=== PATIENT | female | born 1950 | race Caucasian/White ===

== ENCOUNTER 2016-10-12 22:11 | Observation (INO) | payer MEDICARE, OTHER ==
[~2016-10-12] VITALS: Ht 160 cm; Wt 68.6 kg
[2016-10-12] MEDS ORDERED: NORC1TAB4 PO (22:29)
[2016-10-13] MEDS ORDERED: ONDANSETRON 4MG/2ML VIAL (J2405) IV ONE (03:00)
[2016-10-13] MEDS ORDERED: MORPHINE 4 MG/ML 1ML SYRINGE IV PRN (03:00)
[2016-10-13 03:21] LABS: BASO % 0.9 % (0.0-1.0); EOS # 0.1 K/mm3 (0.0-0.50); LARGE UNSTAINED CELL # 0.1 K/mm3 (0.0-0.4); LARGE UNSTAINED CELL % 1.8 % (0.0-4.0); LYMPH # 1.7 K/mm3 (1.5-4.5); LYMPH % 35.9 % (24.0-44.0); MEAN CORPUSCULAR HEMOGLOBIN 33.4 pg (27.0-33.0); MEAN CORPUSCULAR HGB CONC 34.3 g/dl (32.0-36.5); MEAN CORPUSCULAR VOLUME 97.1 fl (80.0-96.0); MONO # 0.2 K/mm3 (0.0-0.8); MONO % 4.6 % (0.0-5.0); NEUTROPHILS # 2.6 K/mm3 (1.8-7.7); NEUTROPHILS % 54.8 % (36.0-66.0); PLATELET COUNT, AUTOMATED 227 k/mm3 (150-450); RED CELL DISTRIBUTION WIDTH 12.1 % (11.5-14.5); WHITE BLOOD COUNT 4.8 K/mm3 (4.0-10.0)
[2016-10-13 03:27] LABS: INR 0.95
[2016-10-13 03:44] LABS: ANION GAP 8 MEQ/L (8-16); BLOOD UREA NITROGEN 17 MG/DL (7-18); CALCIUM LEVEL 8.9 MG/DL (8.8-10.2); CARBON DIOXIDE LEVEL 28 MEQ/L (21-32); CHLORIDE LEVEL 103 MEQ/L (98-107); CREATININE FOR GFR 0.63 MG/DL (0.55-1.02); GLOMERULAR FILTRATION RATE > 60.0 (>45); GLUCOSE, FASTING 104 MG/DL (80-110); POTASSIUM SERUM 4.1 MEQ/L (3.5-5.1); SODIUM LEVEL 139 MEQ/L (136-145)
--- NOTE | 2016-10-13 03:50 | REPUSA ---
CLINICAL HISTORY: Edema. COMMENTS: Real time sonography with duplex doppler of the right lower extremity was performed with attention to the major deep venous structures. Evaluation reveals the right common femoral, superficial femoral and popliteal veins to be completely compressible without intraluminal thrombus. There is normal spontaneous phasic flow and augmentation . The greater saphenous/common femoral vein junction is patent. No reflux was noted. IMPRESSION: No evidence of DVT in right lower extremity. Thank you for your kind referral of this patient.
[2016-10-13] MEDS ORDERED: KETOROLAC 30 MG/ML VIAL (J1885) IV ONE (04:45)
[2016-10-13] MEDS ORDERED: ASPI81TAEC PO (05:28)
[2016-10-13] MEDS ORDERED: BISACODYL 10 MG SUPP PR PRN (06:15)
[2016-10-13] MEDS ORDERED: ONDANSETRON 4MG/2ML VIAL (J2405) IV PRN (06:15)
[2016-10-13] MEDS ORDERED: oxyCODONE 5MG TAB PO PRN (06:15)
--- NOTE | 2016-10-13 06:20 | REPUSA ---
CLINICAL HISTORY: Pain. TECHNIQUE: Multiple axial CT images were obtained without IV contrast material. MPR coronal and sagit braden sequences are obtained. COMMENTS: There is no evidence of fracture or dislocation. There are no lytic or blastic lesions. No soft tissu e masses or fluid collections are present. There is no evidence of arthritis. Joint spaces are preserved. IMPRESSION: Normal study. Thank you for your kind referral of this patient.
[2016-10-13 08:40] VITALS: BP 168/82
[2016-10-13] MEDS: LIDOCAINE 5% (LIDODERM) PATCH TD SCH (08:47)
[2016-10-13] MEDS: SENOKOT S TAB PO SCH ×2 (08:47→20:21)
[2016-10-13] MEDS: ACETAMINOPHEN 500 MG TAB PO PRN ×2 (08:47→17:29)
[2016-10-13] MEDS: ENOXAPARIN 40 MG/0.4 ML SYRINGE (J1650) SC SCH (08:48)
--- NOTE | 2016-10-13 10:12 | HPE ---
DATE OF ADMISSION: 10/13/2016 PRIMARY CARE PROVIDER: Dr. Moise Ballard at [place], [place]. CHIEF COMPLAINT: Severe right buttock pain with radiation down the right thigh and leg for two days. PAST MEDICAL HISTORY: None. HISTORY OF PRESENT ILLNESS: This is a 66-year-old healthy female who to be till last year. [place]. She felt some twinges of pain in the right buttock and right hip 2 days ago and did not pay attention. Two days ago, she woke up from sleep and started to stand up. She felt severe pain radiating from the right buttock down the legs, the back of the thigh and down the front of the legs. She also started feeling tingling and numbness sensation on the front of the legs below the knee. She went to [facility]. There she had an x-ray done which did not show any abnormality. She was given a [place] discharged home. She took two doses of Reading, however the pain did not michelle at all. In fact, it was getting worse so she came to our hospital for evaluation. In our hospital, she was in severe pain and was unable to bear weight and was unable to ambulate. She received valium, morphine and Cat[place]ac. In spite of that, she continued to complain of pain. Blood work was done which were all within normal limits. The patient also had a vascular ultrasound done, which was negative for deep venous thrombosis. Examination of right lower extremity showed loss of deep tendon reflexes on the right and there was slightly slow capillary refill in both extremities. The patient was diagnosed with possible lumbar radiculopathy and was scheduled for a CT scan of the lumbar spine and subsequently, the patient was admitted to the hospitalist service for lumbar radiculopathy. 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 Left wrist surgery. SOCIAL HISTORY: The patient does not smoke. Does not drink alcohol or use any recreational drugs. ALLERGIES: No known drug allergies. HOME MEDICATIONS: No regular home medications. REVIEW OF SYSTEMS: The patient denies any fever or chills. Denies any chest pain, shortness of breath, or cough. Denies any abdominal pain, nausea, vomiting, diarrhea. PHYSICAL EXAMINATION: VITAL SIGNS: Temperature 97.7, pulse 73, respiratory rate 18, blood pressure 137/81, pulse oximetry 98% in room air. GENERAL: The patient is alert, awake, oriented times three sitting up in bed in no acute distress. HEENT: Normocephalic, atraumatic. Moist mucous membranes. Anicteric eyes. CHEST: Clear to auscultation. CARDIOVASCULAR: S1, S2 regular. No rub, murmur, or gallop. ABDOMEN: Soft, nontender. Bowel sounds present. EXTREMITIES: No edema. NEURO: Absence of deep tendon reflexes at the knee and ankle on the right. Normal reflexes on the left. Power on both sides 5/5. LABORATORY DATA: WBC 4.8, hemoglobin 14.5, platelet 227. Sodium 139, potassium 4.1, chloride 103, bicarbonate 28, BUN 17, creatinine 0.6, glucose 104, calcium 8.9. Coagulation studies are normal. Ultrasound of the lower extremities are negative. CT scan has been ordered. ASSESSMENT: This is a 66-year-old female admitted for possible lumbar radiculopathy inability to ambulate and pain control. PLAN: Right lower extremity pain, difficulty in ambulation most probably related to lumbar radiculopathy and sciatica. Will continue with pain control with morphine, oxycodone as needed and will also use Lidoderm patch locally. If pain is not adequately controlled. We will call pain management after CT scan is done to see if the patient would benefit from any local injections. Will also schedule the patient to be seen by physical therapy. Deep venous thrombosis prophylaxis has been ordered.
[2016-10-13] MEDS: MORPHINE 4 MG/ML 1ML SYRINGE IV PRN ×2 (13:09→20:14)
[2016-10-13 14:00] VITALS: BP 133/76
--- NOTE | 2016-10-13 15:33 | REP ---
MRI lumbar spine without contrast: History: Neuropathy. Shooting pain in the right hip down the right leg to the foot. Technique: Sagittal and axial T1 and T2-weighted scans are acquired in the usual fashion with and without fat saturation. Sequences include spin echo, turbo spin-echo, and STIR imaging sequences. MRI findings: There is a hemangioma in the right side of the vertebral body at T11. Cortical and medullary bone signal intensity are otherwise normal. Lumbar vertebral body heights are preserved. Alignment is normal. Conus medullaris is normal in position and appearance at T12-L1. Normal caliber aorta is seen. There is incidental note of gallstones with two fairly sizable filling defects in the gallbladder lumen. There is a small cortical cyst in the periphery of the right kidney. There is a 2.5 cm cystic area in the left ovary. Axial and sagittal images at the T12-L1 disc level show no significant abnormality. At L1-L2, there is mild diffuse disc bulging. No central canal stenosis or neural foraminal narrowing is seen. At L2-L3, there is minimal diffuse disc bulging. No other abnormality. At L3-4, there is degenerative disc and osteoarthritic facet disease moderate in degree bilaterally. This is associated with a degenerative 3 mm grade 1 spondylolisthesis at L3-4. No spondylolysis is seen. There is a right posterior and right foraminal disc protrusion at L3-4 which produces neural foraminal narrowing and some right ventral lateral thecal sac compression. There is mild central canal stenosis at L3-4. Mid sagittal dimension of the thecal sac is 11 mm. At L4-5 there is facet hypertrophy and minimal diffuse disc bulging. No central canal stenosis is seen. There is some left-sided neural foraminal narrowing. At L5-S1 there is some sacralization of L5 and bilateral facet hypertrophy is seen. No other finding. Impression: 1. Degenerative spondylosis. Right posterior lateral and foraminal disc protrusion at L3-4. Mild central canal stenosis at L3-4. Neural foraminal narrowing as above. 2. Cholelithiasis. 3. 2.5 cm cystic area left ovary. Signed by Nima Anne MD 10/13/2016 04:40 P
[2016-10-13] MEDS ORDERED: **NOTE PATIENT COMMENT** MISC XX SCH (21:00)
[2016-10-13 22:00] VITALS: BP 136/69
[2016-10-14] MEDS: oxyCODONE 5MG TAB PO PRN ×3 (01:21→15:33)
[2016-10-14 05:57] LABS: BASO % 0.9 % (0.0-1.0); EOS # 0.1 K/mm3 (0.0-0.50); EOS % 2.9 % (0.0-3.0); LARGE UNSTAINED CELL # 0.1 K/mm3 (0.0-0.4); LYMPH # 1.7 K/mm3 (1.5-4.5); LYMPH % 39.4 % (24.0-44.0); MEAN CORPUSCULAR HEMOGLOBIN 34.1 pg (27.0-33.0); MEAN CORPUSCULAR HGB CONC 35.1 g/dl (32.0-36.5); MEAN CORPUSCULAR VOLUME 97.2 fl (80.0-96.0); MONO # 0.2 K/mm3 (0.0-0.8); MONO % 5.5 % (0.0-5.0); NEUTROPHILS % 49.2 % (36.0-66.0); PLATELET COUNT, AUTOMATED 193 k/mm3 (150-450); RED CELL DISTRIBUTION WIDTH 12.3 % (11.5-14.5)
[2016-10-14 06:00] VITALS: BP 125/74
[2016-10-14] MEDS: ACETAMINOPHEN 500 MG TAB PO PRN ×2 (06:04→13:13)
[2016-10-14 06:17] LABS: ANION GAP 6 MEQ/L (8-16); BLOOD UREA NITROGEN 18 MG/DL (7-18); CALCIUM LEVEL 8.5 MG/DL (8.8-10.2); CARBON DIOXIDE LEVEL 28 MEQ/L (21-32); CHLORIDE LEVEL 106 MEQ/L (98-107); CREATININE FOR GFR 0.62 MG/DL (0.55-1.02); GLOMERULAR FILTRATION RATE > 60.0 (>45); GLUCOSE, FASTING 103 MG/DL (80-110); POTASSIUM SERUM 4.3 MEQ/L (3.5-5.1); SODIUM LEVEL 140 MEQ/L (136-145)
[2016-10-14] MEDS: SENOKOT S TAB PO SCH (08:53)
[2016-10-14] MEDS: ENOXAPARIN 40 MG/0.4 ML SYRINGE (J1650) SC SCH (08:54)
[2016-10-14] MEDS: LIDOCAINE 5% (LIDODERM) PATCH TD SCH (08:55)
[2016-10-14] MEDS ORDERED: CYCLOBENZAPRINE 5MG TABLET PO PRN (10:15)
--- NOTE | 2016-10-14 11:04 | IPNPDOC ---
Subjective Date Seen The patient was seen on 10/14/16. Subjective Chief Complaint/HPI The patient is a 66-year-old female admitted with a reason for visit of Radiculopathy Of Lumbar Region. Events since last encounter Patient was seen this morning at bedside. No acute overnight events. She continues to have some right-sided back pain that radiates down her leg, not worse than yesterday. She denies any increased weakness. No bowel or bladder dysfunction. She was sitting up in the chair and reported that this made her back feel better as opposed to laying on the bed. She worked with physical therapy a little bit this morning. 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 Denies any chest pain/pressure, shortness of breath, nausea, vomiting, abdominal pain, fever, chills, lightheadedness, dizziness. Objective Physical Examination General Exam: Positive: Alert, Cooperative, No Acute Distress Eye Exam: Positive: Conjunctiva & lids normal, EOMI, Negative: Sclera icteric ENT Exam: Positive: Atraumatic, Mucous membr. moist/pink, Pharynx Normal Neck Exam: Positive: Supple, Negative: thyromegaly Chest Exam: Positive: Clear to auscultation, Normal air movement Heart Exam: Positive: Rate Normal, Regular Rhythm, Normal S1, Normal S2, Negative: Murmurs Abdomen Exam: Positive: Normal bowel sounds, Soft, Negative: Tenderness Extremity Exam: Positive: Normal pulses, Negative: Cyanosis, Edema Skin Exam: Positive: Nl turgor and temperature, Negative: Rash Neuro Exam: Positive: Normal Speech, Strength at 5/5 X4 ext, Sensation Intact, Cranial Nerves 3-12 NL Psych Exam: Positive: Mental status NL, Mood NL, Oriented x 3 Assessment /Plan Problems (1) Radiculopathy of lumbar region Status: Acute Problem Text: * Ultrasound on 10/13 did not show any evidence of DVT on the right lower extremity. Lumbar MRI on 10/13 revealed degenerative spondylosis. Right posterior lateral foraminal disc protrusion at L3-4 producing neural foraminal narrowing, mild central canal stenosis, mild disc bulging at other lumbar levels * Continue with Percocet, lidoderm patch and Tylenol as needed, Flexeril added this morning * Continue working with physical therapy * Patient is eager to go home, we'll await PT clearance Plan/VTE VTE Prophylaxis Ordered?: Yes (lovenox) VS, I&O, 24H, Fishbone Vital Signs/I&O Vital Signs Date Time Temp Pulse Resp B/P (MAP) Pulse Ox O2 Delivery O2 Flow Rate FiO2 10/14/16 09:45 18 10/14/16 09:00 Room Air 10/14/16 06:00 97.6 74 125/74 (91) 98 I&O- Last 24 Hours up to 6 AM 10/14/16 05:59 Intake Total 720 ml Output Total 1725 ml Balance -1005 ml Laboratory Data CBC/BMP Laboratory Tests 10/14/16 05:38 Red Blood Count 3.91 L, Mean Corpuscular Volume 97.2 H, Mean Corpuscular Hemoglobin 34.1 H, Mean Corpuscular Hemoglobin Concent 35.1, Red Cell Distribution Width 12.3, Neutrophils (%) (Auto) 49.2, Lymphocytes (%) (Auto) 39.4, Monocytes (%) (Auto) 5.5 H, Eosinophils (%) (Auto) 2.9, Basophils (%) ( Auto) 0.9, Neutrophils # (Auto) 2.0, Lymphocytes # (Auto) 1.7, Monocytes # (Auto ) 0.2, Eosinophils # (Auto) 0.1, Basophils # (Auto) 0.0, Calcium Level 8.5 L GME ATTESTATION GME ATTESTATION My preceptor for this patient encounter was physically present in the building during the encounter and was fully available. As needed, all aspects of the patient interview, examination, medical decision making process, and medical care plan development were reviewed and approved by the preceptor. Preceptor is aware and concurs with the plan as stated in the body of this note and will attest to such by his/her cosignature. YULISSA SHETTY DO October 14, 2016 11:04
[2016-10-14 14:00] VITALS: BP 140/84
[2016-10-14] MEDS ORDERED: CYCL5TA PO ×2 (14:33→14:55)
[2016-10-14] MEDS ORDERED: NORC1TAB4 PO (14:33)
[2016-10-14] MEDS ORDERED: OXYC1TAB23 PO (14:55)
--- NOTE | 2016-10-15 14:32 | DSES ---
DATE OF ADMISSION: 10/13/2016 DATE OF DISCHARGE: 10/14/2016 DISCHARGE DIAGNOSIS: Lumbar radiculopathy. DISCHARGE MEDICATIONS: - Flexeril 5 mg by mouth every 8 hours as needed - Percocet one tablet by mouth every 6 hours as needed - aspirin 81 mg daily BRIEF HOSPITAL COURSE: Ms. Burr is a 66-year-old female without significant past medical history, who presented to the emergency department with pains in the right buttock area radiating down her right hip and leg. She noticed some paresthesias on the anterior side of her right leg below her knee. She went to [facility]. They did an x-ray there, and it did not show any significant abnormality, and she was discharged with [place]. Pain had not subsiding, therefore, she presented to our hospital for further evaluation. Vascular ultrasound was obtained, which did not show any evidence of deep venous thrombosis (DVT) in the right lower extremity. CT of the extremity was done, which did not show any acute abnormality. She had a lumbar MRI, which revealed degenerative spondylosis, right posterior lateral and foraminal disc protrusion at L3-4 which produced neural foraminal narrowing with mild central canal stenosis. Also found to have mild disc bulging at the other lumbar levels. She was treated conservatively with pain medication and muscle relaxer. She worked with physical therapy. 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 in [place] and she does not want him going to that appointment by himself. She reported that the pain had improved significantly, and she wanted to be discharged today to accompany her to this doctor's appointment. She was seen by physical therapy and was deemed safe for discharge with recommendations of outpatient physical therapy. A script was provided for the patient to undergo outpatient physical therapy. She did not have any increased lower extremity weakness. No increased paresthesias. No bowel or bladder dysfunction. No lightheadedness, dizziness, chest pain, shortness of breath, nausea, vomiting, diarrhea, abdominal pain. Given her improvement in symptoms, she was subsequently stable for discharge. LABORATORY DATA: On discharge; WBC 4.0, hemoglobin 13.3, hematocrit 38.1, platelet count 193, sodium 140, potassium 4.3, chloride 106, carbon dioxide 28, anion gap 6, BUN 18, creatinine 0.62, GFR greater than 60, fasting glucose 103, calcium 8.5, IMAGING: As stated above. PHYSICAL EXAMINATION AT DISCHARGE: Temperature 98.0, pulse 77, respiratory rate 18, blood pressure 140/84, pulse oximetry 98% on room air. GENERAL: Patient is alert and oriented times three, in no acute distress. HEENT: Normocephalic, atraumatic. Extraocular muscles are intact. Pupils are equally round and reactive to light. No scleral icterus. Moist mucosa. NECK: Supple. No cervical lymphadenopathy or thyromegaly. HEART: Normal S1, S2, regular rate and rhythm. No murmurs appreciated. LUNGS: Clear to auscultation bilaterally. No rales, rhonchi, or wheezing. ABDOMEN: Soft, nontender, nondistended. Positive bowel sounds. No rebound, guarding, or rigidity. EXTREMITIES: No cyanosis or edema. Positive pedal pulses bilaterally. SKIN: Warm and dry. No rashes noted. NEUROLOGIC: No focal deficits. Cranial nerves II through XII are grossly intact. Motor strength in upper and lower extremities are 5/5 bilaterally. Sensation intact. Good muscle tone. Reflexes intact. DISCHARGE INSTRUCTIONS: Patient is discharged in stable condition. She is to followup with her primary care provider in 1 week. Activity as tolerated. 2 gram sodium diet. Return to emergency department with any worsening or recurring symptoms, including, but not limited to, increasing pain, numbness, tingling, lower extremity weakness, bowel or bladder dysfunction, lightheadedness, dizziness, chest pain, shortness of breath, etc. She was given a script for outpatient physical therapy which she should comply with. TIME SPENT ON DISCHARGE: Greater than 30 minutes. My preceptor for this patient encounter was Dr. Heraclio Walker. The preceptor was physically present in the building during the encounter and was fully available. As needed, all aspects of the patient interview, examination, medical decision making process, and medical care plan development were reviewed and approved by the preceptor. The preceptor is aware and concurs with the plan as stated in the body of this note and will attest to such by his/her cosignature.
== END 2016-10-14 15:55 | disposition home or self-care (01) ==
LOC: M ED 23:35 → M ED INP 10-13 06:08 → M MSPAV 10-13 08:36
PROVIDERS: ADMIT Internal Medicine Nephrology; ATTEND Internal Medicine
DX: M47.26 Other spondylosis with radiculopathy, lumbar region (principal); Z79.82 Long term (current) use of aspirin; M25.561 Pain in right knee; M25.551 Pain in right hip; M79.604 Pain in right leg
CPT/HCPCS: 36415; 72148; 73700; 80048; 85025; 85610; 85730; 93971; 96372; 96374; 96375; 96376; 97161; 97530; 99285; G0378; J1650; J1885; J2405; J3360